=== PATIENT | male | born 1975 ===

== ENCOUNTER 2018-03-25 10:36 | Day surgery (SDC) | payer OTHER ==
[~2018-03-25 10:36] MED LIST: FENOFIBRATE130 MG PO; LOTREL 5-10 MG1 CAP PO
[2018-03-25] MEDS ORDERED: NEURONTIN300 MG PO (15:20)
[2018-03-25] MEDS ORDERED: PERCOCET 5-3251 EACH PO (15:20)
[2018-03-25] MEDS ORDERED: POLY119PG PO (15:23)
== END 2018-03-25 16:55 | disposition home or self-care (01) ==
LOC: CIR.AMB 10:36
DX: K35.890 Other acute appendicitis without perforation or gangrene (principal); K36 Other appendicitis